=== PATIENT | female | born 1995 | race Caucasian/White ===

== ENCOUNTER 2018-07-09 05:25 | Inpatient (IN) ==
[2018-07-09 04:59] LABS: Amphetamine Screen,Urine Negative ng/mL (Cutoff=1000); Barbiturate Screen,Urine Negative ng/mL (Cutoff=200); Benzodiazepines Screen,Urine Negative ng/mL (Cutoff=200); Cannabinoid Screen,Urine Negative ng/mL (Cutoff = 50); Cocaine Screen,Urine Negative ng/mL (Cutoff= 300); Opiate Screen,Urine Negative ng/mL (Cutoff=300); Phencyclidine Screen,Urine Negative ng/mL (Cutoff=25)
--- NOTE | 2018-07-09 05:23 | OB/GYN History & Physical ---
Date of Encounter: 07/09/18 Time of Encounter: 05:18 Assessment and Plan (1) 38 weeks gestation of Current visit: Yes Status: Acute (2) SROM (spontaneous rupture of membranes) Current visit: Yes Status: Acute Admit for labor. SVE 1cm per RN. GBS negative Allow ambulation with intermittent monitoring. Epidural or Nubain if requested. Anticipate . History of Present Illness Chief complaint: leaking fluid HPI: Ms. Rodriguez is a 22 year old female presenting at 38w4d with c/o a large gush of clear fluid at 0300 this am. She reports continued leaking down her legs since. She reports contractions are getting stronger also. No bleeding. Good FM. This has been complicated by anxiety and episodes of "heart racing" for which she had a holter monitor. The holter showed sinus tachycardia with one PAC. Pt had chlamydia at beginning of with negative BULL. No other complications. O positive Rubella immune Serologies negative GBS negative Past Med Surg Social Fam HX - Past Medical History Medical history: non-contributory, asthma Additional medical history: Sinus tachycardia Psychiatric history: anxiety - Past Surgical History Surgical History: no surgical history - Social History Smoking Status: 2nd Hand Smoke Exposure Smokeless Tobacco Status: No Alcohol use: none Drug use: none - Family History Mother Living Status: Still Living Hx Family Cancer: Yes Obstetrical History - Pregnancies : 1 Medications and Allergies Caplet 1 tab PO DAILY 05/22/18 [History] Allergy/AdvReac Type Severity Reaction Status Date / Time No Known Allergies Allergy Verified 07/09/18 03:59 Review of System OB All systems PM: reviewed and no additional remarkable complaints except as stated Exam - Constitutional Constitutional: well developed, well nourished, mild distress - HEENT HEENT: Mucus Membranes Moist - Lungs Respiratory exam: CTAB - Cardiovascular Cardiovascular exam: RRR, +S1, +S2 - Abdomen Abdomen: Present: gravid, non tender - Extremities Extremities exam: normal inspection - Vulva Vulva: bilateral: normal - Cervix Dilation: 1 (per RN) - Anus/Rectum Anus/Rectum: Present: normal perianal skin - Comments Comments: SSE equivocal nitrazine, positive fern Results All other labs normal. - VTE Reasons for not Prescribing Prophylaxis: Treatment not Indicated - Low risk for VTE
[~2018-07-09 05:25] MED LIST: *HR* Nalbuphine 10 MG/ML AMPUL IVP PRN; Famotidine 20 MG/2 ML VIAL IVP PRN; Metoclopramide 10 MG/2 ML VIAL IVP PRN; Naloxone 0.4 MG/ML INJ IVP PRN; Ondansetron 4 MG/2 ML VIAL IVP PRN; Ringers Solution, Lactated 1,000 ML IVC SCH
[2018-07-09 05:52] LABS: Basophils % 0.2 %; Eosinophils # 0.1 K/mcL (0.0-0.6); Hematocrit 33.9 % (35.3-44.9); Hemoglobin 11.3 g/dL (11.5-15.4); Immature Granulocytes % 0.8 % (0-4); Lymphocytes # 2.3 K/mcL (0.6-4.6); Lymphocytes % 18.5 %; Mean Corpuscular HGB Conc 33.3 g/dL (31.6-35.5); Mean Corpuscular Hemoglobin 29.3 pg (28.0-33.3); Mean Corpuscular Volume 87.8 fL (83.0-100.0); Mean Platelet Volume 10.6 fL (9.4-12.4); Monocytes % 7.5 %; Neutrophils # 9.1 K/mcL (1.6-8.9); Platelet Count 248 K/mcL (140-400); Red Blood Count 3.86 M/mcL (3.82-4.97); Red Cell Distribution Width 13.9 % (11.5-14.5)
--- NOTE | 2018-07-09 12:25 | OB Labor Progress Note ---
Date of Encounter: 07/09/18 Time of Encounter: 12:22 Labor Progress Note - Subjective Subjective: Patient is coping well with contractions. Has been ambulating and on birthing ball. - Vital Signs Vital Signs: WNL - Cervix Cervix: 1/50/-3 - Heart Tones Heart Tones: FHR 125 bpm, moderate variability, +15x15 accels, no decels. - Lyon Lyon: 3-4 minutes - Interventions Interventions: Continue expectant management. NO fluid has been visualized since [address] Loo requested to perform bedside ultrasound for VALERIE Patient is positive her water broke this AM. She states she had large areas of fluid this morning. - Plan Physician notified: Yes Physician notified details: Dr. Loo aware of patient situation and request for bedside VALERIE Plan: Continue expectant management RE-evaluate plan after bedside VALERIE
--- NOTE | 2018-07-09 14:04 | Event Note ---
Date of Encounter: 07/09/18 Time of Encounter: 13:54 At bedside to evaluate patient. 22yo at 38+4wks GA who presents with concern for SROM. Reports to have woken up with a pool of fluid between her legs, but was not continually leaking. She presented this AM, SSE was performed which was negative for pooling. Nitrazine negative, but small ferns were appreciated. Given the patients gestational age and concern for SROM, we allowed the patient to stay, with her cervix unchanged at 1-2cm. On examination, membranes and an intact amnion was appreciated - at first which we considered to be a forebag. THe patient was kept for expectant management, and unfortunately has not had further leaking, and also reports NO continuous fluid. She was not induced, as we allowed her to be on the medicine ball/peanut ball. Again, she has had a completely dry perineum. At bedside, I attempted to do a TAUS for VALERIE, as at this point - we do not think she is ruptured as she isn't leaking, her cervix in unchanged, and her membranes are intact digitally. The tracing has been pristine, with adequate accels for GA, along with m oderate variability. She has been stephanie, however her cervix has remained unchanged. We contacted Dr. Bey, as she is his patient, to discuss his thoughts as she is <39 weeks and our suspicion for SROM is now negative. Pending Dr. Bey's recommendation, we will likely plan to send patient home with recommendation(S) to return should symptoms alter.
--- NOTE | 2018-07-09 14:37 | Event Note ---
Date of Encounter: 07/09/18 Time of Encounter: 14:[address] Bey, given information regarding VALERIE 13.5cm and unchanged SVE examination since presentation this morning. She is having contractions with a R&R NST, no concerns for NRFWB. Vertex presentation. Given C discussion as well as continuous leaking of fluid. All question(s) and concerns were discussed. This is likely prodromal labor but regardless she has had an unchanged cervical examination in the setting of no fluid leaking, no pooling, and a normal VALERIE. MD MARINA
[2018-07-09] MEDS ORDERED: Lidocaine -MPF 1% 5 ML AMPUL ONE (18:33)
== END 2018-07-09 15:00 | disposition home or self-care (01) | DRG 833 ==
LOC: 1NENULAB
PROVIDERS: ADMIT Registered Nurse; ATTEND Registered Nurse

== ENCOUNTER 2018-07-09 18:16 | Inpatient (IN) ==
[2018-07-09] MEDS ORDERED: Metoclopramide 10 MG/2 ML VIAL IVP PRN (18:20)
[2018-07-09] MEDS ORDERED: *HR* Nalbuphine 10 MG/ML AMPUL IVP PRN (18:20)
[2018-07-09] MEDS ORDERED: Famotidine 20 MG/2 ML VIAL IVP PRN (18:20)
[2018-07-09] MEDS ORDERED: Naloxone 0.4 MG/ML INJ IVP PRN (18:20)
[2018-07-09] MEDS ORDERED: Epidural Premix (fent/bupiv) 110 ML EP SCH (18:30)
[2018-07-09] MEDS ORDERED: Ringers Solution, Lactated 1,000 ML IVC SCH (18:30)
[2018-07-09] MEDS ORDERED: Epidural Premix (fent/bupiv) 110 ML EP ONE (18:33)
--- NOTE | 2018-07-09 18:39 | History & Physical Report ---
Date of Encounter: 07/09/18 Time of Encounter: 18:37 24 Hour HP Update - Instructions Instructions: If the History and Physical is less than 30 days old and was completed prior to A.M. admission and or procedure and has NOT been updated on calendar day of procedure please complete this update prior to performing procedure. - Update Patient reports changes in Medical Condition: No Changes in examination, assessment, or condition: No Changes in Medication: No Preop tests/diagnostics Reviewed: No Pre-Op MRSA Screen: Negative - Attending Attestation Patient was discharged approximately 3 hours earlier, no change in previous H&P documentation. Patient is 4/100/-1 on admission.
[2018-07-09] MEDS ORDERED: Oxytocin 20 units/ LR 1000 mL 20 UNIT/1,000 ML BAG IVC ONE ×2 (19:05→19:07)
[2018-07-09] MEDS ORDERED: Acetaminophen 325 MG TABLET PO PRN ×2 (19:06→20:38)
[2018-07-09] MEDS ORDERED: Measles/Mumps/Rubella Vacc 0.5 ML VIAL SQ PRN (19:06)
[2018-07-09] MEDS ORDERED: Lanolin 7 G OINT...G. TP PRN (19:08)
[2018-07-09] MEDS ORDERED: Benzocaine/Menthol 56 GM AEROSOL SPRAY TP PRN ×2 (19:08→20:38)
[2018-07-09] MEDS ORDERED: Oxytocin 20 units/ LR 1000 mL 20 UNIT/1,000 ML BAG IVC SCH ×2 (19:15→20:38)
--- NOTE | 2018-07-09 19:21 | Anesthesia Evaluation PreOp ---
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 History: Denies Any Significant HX Other Medical History: Denies Any Significant HX Anesthesia History: No Prior Anesthetic Complications : Yes Test: Positive Alcohol Use: none Drug use: none Medications and Allergies Caplet 1 tab PO DAILY 05/22/18 [History] Allergy/AdvReac Type Severity Reaction Status Date / Time No Known Allergies Allergy Verified 07/09/18 03:59 - Meds/Allergy Pre-op Review Medications Reviewed: Yes Allergies Reviewed: Yes Beta Blockers on Current Med List: No Anesthesia Exam - HEENT Pupil (Motor): Pupils equal Mallampati: II Teeth: Normal Oral Opening: Greater than 3 - FLANGE MACHINE OPERATOR LOC: Oriented FLANGE MACHINE OPERATOR Motor: Normal RUE, Normal LUE, Normal RLE, Normal LLE, Normal Face FLANGE MACHINE OPERATOR Sensory: Normal: RUE, LUE, RLE, LLE, Face - Cardiac Rhythm: Regular Murmur: None JVD: No Carotid Bruit: No - Pulmonary Breath Sounds: bilateral Clear Respiratory Effort: Symmetrical Anesthesia Assess/Plan ASA Score: 2 Level of consciousness: Cooperative Anesthetic Plan: Epidural Autologous Blood: No Monitoring Plan: Standard Monitors
--- NOTE | 2018-07-09 19:27 | Anesthesia Procedures ---
Addendum entered and electronically signed by Lyly Mtz CRNA 07/10/18 04:54: Delivery Date: 07/09/18 Delivery Time: 19:13 Original Note: Date of Encounter: 07/09/18 Time of Encounter: 18:30 Procedures: Anesthesia - Epidural/Spinal Patient ID/Chart reviewed: Yes Patient examined: Yes OB Eval: : 1 OB Eval: Hx Para: 0 Consent Obtained: Yes Supplemental Oxygen: None/Room Air Site Prep: Aseptic Technique, Sterile prep and drape, Povidone-Iodine 1% Patient position: upright Amount of Local Anesthetic used: 3 Touhy Needle Gauge: 18 Touhy Needle Depth (cm): 6 Catheter Depth at Skin (cm): 8 Test Dose (1.5% Lido + Epi): Volume given (mls): 3 Test Dose Result: Negative Infusion Rate (mls/hr): [address]: Tegaderm, Tape Interspace Used: L4-L5 Loss of Resistance (DIANA): Yes Blood: No CSF: No Paresthesia: No Vitals + FHT's: stable throughout, epidural placed without complications, patient stated she felt alot of pressure, no medication bolus through catheter, laid back and checked per Andrew Falk, complete head showing, no epidural rate started, offered SAB for immediate relief patient refused
--- NOTE | 2018-07-09 20:05 | OB/GYN Procedure Note ---
Delivery - Delivery Date: 07/09/18 Provider: Kaylee Falk Intrapartum events: none Delivery induction: none Delivery monitor: external FHT, external uterine Anesthesia: local Quantitated Blood Loss: 200 - (s) Infant A Delivery Date: 07/09/18 Infant Delivery Time: 19:13 Presentation: vertex Position: KATHY Route of delivery: Gender: Male Viability: Viable at 1 minute: 8 at 5 mins: 9 Shoulder Dystocia: not encountered Specimens collected: cord blood Placenta: spontaneous Cord: 3 umbilical vessels - Repair Episiotomy: none Laceration Description: Periurethral (bilateral, left repaired.) - Complications Delivery complications: none Delivery comments: Called to room for delivery. Patient was sitting up for epidural when SROM was noted and patient was complaining of urge to push. SVE revealed cervix completely dilated and +3 station. Under maternal effort, spontaneous delivery of viable male infant over intact perineum. placed on maternal abdomen for drying and stimulation. Cord clamped and cut after pulsation ceased. Spontaneous delivery of intact placenta, EBL 200 mL's. Left periurethral laceration noted to be bleeding, sutured in the usual fashion with the assistance of Dr. Loo. Right periurethral hemostatic therefore not repaired. No nuchal cord, shoulder dystocia, or meconium encountered. Mother and infant in kangaroo care for 2 hour recovery. - Disposition Mom disposition: stable in LDR disposition: stable in LDR
[2018-07-09] MEDS: Ibuprofen 600 MG TABLET PO PRN (20:52)
[2018-07-10] MEDS ORDERED: Prenatal Vit/FA 1 EACH TABLET PO SCH ×2 (09:00)
[2018-07-10] MEDS: Ibuprofen 600 MG TABLET PO PRN ×2 (09:28→15:29)
--- NOTE | 2018-07-10 09:54 | Discharge Summary ---
Date of Encounter: 07/10/18 Time of Encounter: 09:52 - Discharge Diagnosis (1) Vaginal delivery Priority: Primary Status: Acute Comments: Continue routine care discharge home today Follow up with Dr. Bey in 4-6 weeks (2) Breast feeding status of mother Priority: Secondary Status: Acute Comments: support prn - Discharge Medications Prescriptions: New Ibuprofen [Motrin] 600 mg PO Q6HR PRN #60 tablet PRN Reason: Cramping Breast Pump [BREAST PUMP] 1 each .ROUTE AD #1 each Continue Caplet 1 tab PO DAILY Home Medications: Caplet 1 tab PO DAILY 05/22/18 [History] Breast Pump [BREAST PUMP] 1 each .ROUTE AD #1 each 07/10/18 [Rx] Ibuprofen [Motrin] 600 mg PO Q6HR PRN #60 tablet 07/10/18 [Rx] Allergies/Adverse Reactions: Allergy/AdvReac Type Severity Reaction Status Date / Time No Known Allergies Allergy Verified 07/09/18 03:59 Date of admission: 07/09/18 18:16 Primary care physician: PCP NONE Consults: 07/09/18 19:06 Consult to Forklift Truck Operator [CONS] Routine Comment: Vaginal delivery, consult needed 07/09/18 20:38 Consult to Forklift Truck Operator [CONS] Routine Comment: Vaginal delivery, consult needed Discharging clinician: Jesusita Valle Anticipated date of discharge: 07/10/18 - Patient Status Disposition: Home, Self-Care Condition: Good Functional capacity at discharge: independent ambulation - Discharge Instructions Follow Up With: NONE,PCP [Primary Care Provider] - Vishal Bey MD [Partnered Physician] - - Diet and Activity Activity: increase activity as tolerated Diet: regular diet Hospital Course Reason for admission: active labor Delivery: Episiotomy: none Laceration: other (right periurethral) Other procedures: none complications: none Discharge diagnosis: IUP at term delivered baby: male (breast feeding) Time Attestation: Total time spent providing and/or coordinating discharge services: Time Spent: Less than 30 minutes Exam - Constitutional Vitals: Temp Pulse Resp BP Pulse Ox 98.5 F 95 16 117/73 98 07/10/18 07:57 07/10/18 07:57 07/10/18 07:57 07/10/18 07:57 07/10/18 07:57 General appearance IM: A&O X 3, pleasant, answers questions appropriately - Respiratory Respiratory exam: Present: CTAB - Cardiovascular Cardiovascular exam IM: Present: RRR, +S1, +S2 - GI/Abdominal GI/Abdominal exam IM: normal bowel sounds - Uterine Tone: Firm Uterus Position: At Umbilicus, Midline - Extremities Exam Extremities exam IM: Present: full ROM, normal capillary refill, normal inspection - Neurological Exam Neurological exam: alert, oriented X3, reflexes normal
[2018-07-10 17:05] VITALS: BP 114/78
== END 2018-07-10 22:35 | disposition home or self-care (01) | DRG 807 ==
LOC: 1NENULAB 18:16 → 1NENUOBS 21:57
PROVIDERS: ADMIT Registered Nurse; ATTEND Registered Nurse

== ENCOUNTER 2020-12-24 10:33 | Inpatient (IN) ==
[2020-12-24 09:23] LABS: Basophils % 0.1 %; Eosinophils # 0.1 K/mcL (0.0-0.6); Eosinophils % 0.7 %; Hematocrit 29.8 % (35.3-44.9); Hemoglobin 9.8 g/dL (11.5-15.4); Immature Granulocytes % 0.9 % (0-4); Lymphocytes % 16.9 %; Mean Corpuscular HGB Conc 32.9 g/dL (31.6-35.5); Mean Corpuscular Hemoglobin 28.2 pg (28.0-33.3); Mean Corpuscular Volume 85.6 fL (83.0-100.0); Mean Platelet Volume 10.9 fL (9.4-12.4); Monocytes # 0.8 K/mcL (0.0-1.3); Monocytes % 6.8 %; Platelet Count 321 K/mcL (140-400); Red Blood Count 3.48 M/mcL (3.82-4.97); Red Cell Distribution Width 14.8 % (11.5-14.5); Segmented Neutrophils % 74.6 %; White Blood Count 12.1 K/mcL (4.3-11.1)
[2020-12-24 09:54] LABS: Influenza A PCR Negative (Negative); Influenza B PCR Negative (Negative); Resp. Syncytial Virus PCR Negative (Negative)
[~2020-12-24 10:33] MED LIST changes: +*HR* FentaNYL (PF) 100 MCG/2 ML VIAL EP ONE; -*HR* Nalbuphine 10 MG/ML AMPUL IVP PRN; +Azithromycin 500 MG in 0.9 % Sodium Chloride 250 ML IVPB PRN; +EPHEDrine 50 MG/ML VIAL IVP PRN; +Epidural Premix (fent/bupiv) 110 ML EP SCH; +Lidocaine 1% 20 ML MDV ID PRN; +Oxytocin 20 units/ LR 1000 mL 20 UNIT/1,000 ML BAG IVC SCH; +Penicillin G Potassium 5,000,000 UNIT in 0.9 % Sodium Chloride Mini Bag 100 ML IVPB ONE; +Ropivacaine/PF 0.2% 20 ML VIAL EP ONE; +Ropivacaine/PF 0.2% 20 ML VIAL ONE; +miSOPROStoL 25 MCG TABLET PO PRN
[2020-12-24] MEDS: *HR* Nalbuphine 10 MG/ML AMPUL IV PRN ×2 (10:50→13:55)
[2020-12-24 10:54] LABS: SARS-CoV-2 by PCR (In House) Negative (Negative)
[2020-12-24 11:24] LABS: Amphetamine Screen,Urine Negative ng/mL (Cutoff=1000); Barbiturate Screen,Urine Negative ng/mL (Cutoff=200); Benzodiazepines Screen,Urine Negative ng/mL (Cutoff=200); Cannabinoid Screen,Urine Negative ng/mL (Cutoff = 50); Cocaine Screen,Urine Negative ng/mL (Cutoff= 300); Opiate Screen,Urine Negative ng/mL (Cutoff=300); Phencyclidine Screen,Urine Negative ng/mL (Cutoff=25)
[2020-12-24] MEDS: Penicillin G Potassium 2,500,000 UNIT/105 ML MLS IVPB SCH ×2 (13:47→18:14)
[2020-12-24] MEDS ORDERED: Benzocaine/Menthol 56 GM AEROSOL SPRAY TP PRN (22:30)
[2020-12-24] MEDS ORDERED: Ondansetron ODT 4 MG TAB.RAPDIS SL PRN (22:30)
[2020-12-24] MEDS ORDERED: Oxytocin 20 units/ LR 1000 mL 20 UNIT/1,000 ML BAG IVC SCH (22:30)
[2020-12-24] MEDS ORDERED: Lanolin 7 G OINT...G. TP PRN (22:30)
[2020-12-24] MEDS: Ibuprofen 600 MG TABLET PO SCH (23:05)
[2020-12-24] MEDS: Acetaminophen 325 MG TABLET PO SCH (23:05)
[2020-12-25] MEDS: Acetaminophen 325 MG TABLET PO SCH ×3 (06:12→19:29)
[2020-12-25] MEDS: Ibuprofen 600 MG TABLET PO SCH ×3 (06:12→19:29)
[2020-12-25 07:05] LABS: Basophils % 0.1 %; Eosinophils % 0.1 %; Hematocrit 30.3 % (35.3-44.9); Hemoglobin 9.4 g/dL (11.5-15.4); Immature Granulocytes % 0.6 % (0-4); Lymphocytes # 1.9 K/mcL (0.6-4.6); Lymphocytes % 10.7 %; Mean Corpuscular Hemoglobin 27.2 pg (28.0-33.3); Mean Corpuscular Volume 87.8 fL (83.0-100.0); Mean Platelet Volume 10.7 fL (9.4-12.4); Monocytes # 1.2 K/mcL (0.0-1.3); Monocytes % 6.8 %; Neutrophils # 14.3 K/mcL (1.6-8.9); Platelet Count 289 K/mcL (140-400); Red Blood Count 3.45 M/mcL (3.82-4.97); Red Cell Distribution Width 15.1 % (11.5-14.5); Segmented Neutrophils % 81.7 %; White Blood Count 17.5 K/mcL (4.3-11.1)
[2020-12-25] MEDS ORDERED: Prenatal Vit/FA 1 EACH TABLET PO SCH (09:00)
[2020-12-25 20:01] VITALS: BP 117/71; PULSE 79; TEMP 97.7; O2SAT 98
== END 2020-12-25 21:10 | disposition home or self-care (01) | DRG 560 ==
LOC: 1NENULAB → 1NENUOBS 22:29
PROVIDERS: ADMIT Advanced Practice Midwife; ATTEND Advanced Practice Midwife